=== PATIENT | female | born 1980 | race American Indian/Alaskan Native ===

== ENCOUNTER 2016-10-24 12:11 | Emergency (ER) | payer MEDICAID ==
[~2016-10-24] VITALS: Ht 165.1 cm; Wt 83.3 kg
[~2016-10-24 12:11] MED LIST: LEVO25TA2 PO
[2016-10-24] MEDS ORDERED: SODIUM CHLORIDE 0.9% 1,000 ML IV ONE (12:38)
[2016-10-24] MEDS ORDERED: SODIUM CHLORIDE FLUSH 10ML SYR IVF ONE (13:00)
[2016-10-24] MEDS ORDERED: HYDR-3240 PO (13:05)
[2016-10-24 13:21] LABS: ASPARTATE AMINO TRANSFERASE 18 U/L (15-37); BLOOD UREA NITROGEN 15 mg/dL (7-18)
[2016-10-24 13:42] LABS: PATH.CAST-FLAG NOT PRESENT; SPERM-FLAG NOT PRESENT; SRC-FLAG NOT PRESENT; XTAL-FLAG NOT PRESENT; YLC-FLAG NOT PRESENT
[2016-10-24] MEDS ORDERED: OMNIPAQUE 350 MG/ML, 100ML BOTTLE ONE (14:40)
[2016-10-24 15:07] VITALS: BP 106/54
== END 2016-10-24 15:24 | disposition home or self-care (01) ==
LOC: ED 13:30
DX: N30.90 Cystitis, unspecified without hematuria (principal); N83.201 Unspecified ovarian cyst, right side
CPT/HCPCS: 36415; 74177; 80053; 81001; 83605; 83690; 84703; 85025; 87086; 93005; 96360; 96361; 99285; J7030; Q9967